=== PATIENT | female | born 2000 | race Hispanic/Latino ===

== ENCOUNTER 2020-10-12 14:38 | Emergency (ER) | payer BC ==
[2020-10-12] MEDS ORDERED: LIDOCAINE 1% MPF 5 ML VIAL ONE (18:17)
--- NOTE | 2020-10-12 18:33 | ER ---
Nurse's Notes [facility] Name: Blossom Canales Age: 19 yrs Sex: Female : 2000 Arrival Date: 10/12/2020 Time: 14:51 Bed 30 Private MD: Diagnosis: Abscess of vulva-Left labia Presentation: 10/12 15:27 Chief complaint: Patient states: Draining abscess in Left inner thigh x 3 days. Pt kg stated she has had one there before. Coronavirus screen: Client denies travel out of the [place] in the last 14 days. At this time, unable to obtain information related to travel outside the [place] At this time, the client does not indicate any symptoms associated with coronavirus-19. Ebola Screen: Patient negative for fever greater than or equal to 101.5 degrees Fahrenheit, and additional compatible Ebola Virus Disease symptoms Patient denies exposure to infectious person. Patient denies travel to an Ebola-affected area in the 21 days before illness onset. No symptoms or risks identified at this time. Initial Sepsis Screen: Does the patient meet any 2 criteria? No. Patient's initial sepsis screen is negative. Does the patient have a suspected source of infection? No. Patient's initial sepsis screen is negative. Risk Assessment: Do you want to hurt yourself or someone else? Patient reports no desire to harm self or others. Onset of symptoms was October 09, 2020. 15:27 Method Of Arrival: Wheelchair kg 15:27 Acuity: WARREN 4 kg Triage Assessment: 15:33 General: Appears in no apparent distress. Behavior is calm, cooperative, appropriate kg for age, quiet. Pain: Complains of pain in groin Pain currently is 5 out of 10 on a pain scale. at worst was 7 out of 10 on a pain scale. level that patient reports is acceptable is 3 out of 10 on a pain scale. 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 - Social history:: Smoking status: Patient denies any tobacco usage or history of. Patient uses alcohol, occasionally. - Family history:: not pertinent. - Hospitalizations: : No recent hospitalization is reported. Screenin:33 Abuse screen: Denies threats or abuse. Denies injuries from another. Nutritional kg screening: No deficits noted. Tuberculosis screening: No symptoms or risk factors identified. Fall Risk None identified. Assessment: 18:00 General: Appears in no apparent distress. uncomfortable, Behavior is cooperative, vg1 anxious. Pain: Complains of pain in groin Pain currently is 10 out of 10 on a pain scale. Pain began 2-3 days ago. Noted to be crying, grimacing, guarding, moaning. Neuro: Level of Consciousness is awake, alert, obeys commands, Oriented to person, place, time, situation. Cardiovascular: Patient's skin is warm and dry. Respiratory: Airway is patent Respiratory effort is even, unlabored. GI: No signs and/or symptoms were reported involving the gastrointestinal system. : Swelling noted on labia. EENT: No signs and/or symptoms were reported regarding the EENT system. Derm: Skin is red, left labia Skin temperature is hot. Musculoskeletal: Circulation, motion, and sensation intact. 18:23 Reassessment: received VO from Dr Anderson to administer zofran 4 mg PO x1 and Morphine 4 vg1 mg IM x1. Vital Signs: 15:27 BP 111 / 79; Pulse 77; Resp 20; Temp 98.3; Pulse Ox 99% on R/A; Weight 69.85 kg (R); kg Height 5 ft. 8 in. (172.72 cm); Pain 5/10; 15:27 Body Mass Index 23.42 (69.85 kg, 172.72 cm) kg ED Course: 14:51 Patient arrived in ED. ds1 15:30 Triage completed. kg 15:33 Patient has correct armband on for positive identification. kg 17:49 Christian Anderson MD is Attending Physician. rn 18:02 Kimberly Smith RN is Primary Nurse. ss 18:02 No provider procedures requiring assistance completed. Patient did not have IV access ss during this emergency room visit. 18:32 Maylin Tompkins MD is Referral Physician. rn 18:58 Patient placed. vg1 Administered Medications: 18:30 Drug: Ondansetron 4 mg Route: PO; vg1 18:58 Follow up: Response: No adverse reaction vg1 18:31 Drug: morphine 4 mg Route: IM; Site: left deltoid; vg1 18:58 Follow up: Response: No adverse reaction; Marked relief of symptoms vg1 Outcome: 18:33 Discharge ordered by . rn 18:58 Discharged to home ambulatory, with family. vg1 18:58 Condition: stable 18:58 Discharge instructions given to patient, Instructed on discharge instructions, follow up and referral plans. medication usage, Demonstrated understanding of instructions, follow-up care, medications, Prescriptions given X 2. 18:58 Patient left the ED. vg1 Signatures: Uyen Pablo ds1 Christian Anderson MD MD rn Smirch, Shelby, RN RN ss Garcia, Victoria, RN RN vg1 Wilda Sanabria RN RN kg
--- NOTE | 2020-10-12 18:33 | EDPHYS ---
Physician Documentation [facility] Name: Blossom Canales Age: 19 yrs Sex: Female : 2000 Arrival Date: 10/12/2020 Time: 14:51 Bed 30 Private MD: ED Physician Christian Anderson HPI: 10/12 18:17 This 19 yrs old Female presents to ER via Wheelchair with complaints of rn Abscess. 18:17 The patient presents with an abscess of the left labia. Description: The affected area rn is moderate sized, localized, draining, erythematous, swollen, tense. Onset: The symptoms/episode began/occurred 3 day(s) ago. Possible cause(s): unknown. Associated signs and symptoms: Pertinent positives: drainage, erythema, swelling, Pertinent negatives: fever. Modifying factors: the symptoms are alleviated by nothing, the symptoms are aggravated by movement, squeezing the lesion and expressing the contents, touching. Severity of symptoms: At their worst the symptoms were moderate, in the emergency department the symptoms are unchanged. The patient has not experienced similar symptoms in the past. The patient has not recently seen a physician. Reports left labial abscess that began atleast 3 days ago. Reports other abscesses before but in axilla. . 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 - Social history:: Smoking status: Patient denies any tobacco usage or history of. Patient uses alcohol, occasionally. - Family history:: not pertinent. - Hospitalizations: : No recent hospitalization is reported. ROS: 18:17 Constitutional: Negative for fever, chills, and weight loss, : + left labial swelling rn and pain Exam: 18:17 Constitutional: This is a well developed, well nourished patient who is awake, alert, rn and in no acute distress. Abdomen/GI: soft, non-tender Female : + moderate sized, approximate 7-8 cm diameter area of fluctuance and tenderness left lateral labia with drainage to lateral side of swelling. Vital Signs: 15:27 BP 111 / 79; Pulse 77; Resp 20; Temp 98.3; Pulse Ox 99% on R/A; Weight 69.85 kg (R); kg Height 5 ft. 8 in. (172.72 cm); Pain 5/10; 15:27 Body Mass Index 23.42 (69.85 kg, 172.72 cm) kg Procedures: 18:17 I \T\ D: Incision and drainage was performed for an abscess of the left labia Prepped rn with Betadine, Anesthetized with 5 ml's 1% Lidocaine. Incised with #11 blade. Drained large amount purulent fluid. serosanguinous fluid. Loculations removed. Abscess cavity explored. Packed with iodoform gauze, Dressing: sterile 4x4 gauze, non-Adherent dressing, the patient tolerated the procedure well. MDM: 17:49 Patient medically screened. rn 18:17 Differential diagnosis: abscess, cellulitis. Data reviewed: vital signs, nurses notes, rn and as a result, I will discharge patient. Counseling: I had a detailed discussion with the patient and/or guardian regarding: the historical points, exam findings, and any diagnostic results supporting the discharge/admit diagnosis, the need for outpatient follow up, to return to the emergency department if symptoms worsen or persist or if there are any questions or concerns that arise at home. 18:30 Special discussion: I discussed with the patient/guardian in detail that at this point rn there is no indication for admission to the hospital. It is understood, however, that if the symptoms persist or worsen the patient needs to return immediately for re-evaluation. Based on the history and exam findings, there is no indication for further emergent testing or inpatient evaluation. I discussed with the patient/guardian the need to see the OB Gyne specialist for further evaluation of the symptoms. ED course: Patient with large labial abscess status post incision and drainage. Cavity explored with cotton swab and irrigated, loculations removed. Still moderate amount of induration and swelling but fluctuance has subsided significantly. Wound packed. Will DC home with [facility] follow-up. Advised if cannot make appointment and to return here for wound reevaluation and repacking since patient does not have a private [facility]TH[facility]ED[facility] PODIATRIST doctor.. 10/12 18:16 Order name: Wound Care; Complete Time: 18: rn 10/12 18:16 Order name: Wound dressing; Complete Time: 18: rn 10/12 18:17 Order name: Incision \T\ Drainage Setup; Complete Time: : rn Administered Medications: 18:30 Drug: Ondansetron 4 mg Route: PO; vg1 18:58 Follow up: Response: No adverse reaction vg1 18:31 Drug: morphine 4 mg Route: IM; Site: left deltoid; vg1 18:58 Follow up: Response: No adverse reaction; Marked relief of symptoms vg1 Disposition Summary: 10/12/20 18:33 Discharge Ordered Location: Home rn Problem: new rn Symptoms: have improved rn Condition: Stable rn Diagnosis - Abscess of vulva - Left labia rn Followup: rn - With: Maylin Tompkins MD - When: 2 - 3 days - Reason: Wound Recheck, Further diagnostic work-up, Recheck today's complaints, Re-evaluation by your physician Discharge Instructions: - Discharge Summary Sheet rn - Skin Abscess rn - Incision and Drainage rn Forms: - Medication Reconciliation Form rn - Thank You Letter rn - 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
[2020-10-12] MEDS ORDERED: ONDANSETRON 4 MG (ODT) TAB ONE (18:55)
[2020-10-12] MEDS ORDERED: MORPHINE 4 MG/ML SYR ONE (18:55)
[2020-10-12 19:35] VITALS: BP 111/79; TEMP 98.3; O2SAT 99
--- OUTSIDE RECORDS SUMMARY | 2020-10-12 22:46 | XMS REPORT | Continuity of Care Document ---
:2000 Author Organization [facility] t Address [address] [place] [address] Care Team Providers Name Role Phone Skyla Perez MD Attending Clinician Doctor Unassigned, [place] Attending Clinician Unavailable Problems This patient has no known problems. Allergies, Adverse Reactions, Alerts This patient has no known allergies or adverse reactions. Medications Ordered Filled Start Stop Current Ordering Indication Dosage Frequency Signature Comments Components Source Medication Medication Date Date Medication? Clinician (SIG) Name Name Montelukast Montelukast Yes Rolando [address] [facility] Sodium Sodium [facility]es in [facility] Cetirizine Cetirizine Yes Rolando [address] [facility] HCl HCl Rodriges [facility] Sertraline Sertraline Yes Rolando TAKE [address] [facility] HCl HCl Rodriges TABLET BY [facility] DA[facility] FOR l 30 DAYS [facility] Zoloft Zoloft Yes Rolando [facility] Immunizations Ordered Filled Immunization Date Status Comments Sourc e Immunization Name Name Afluria single dose Afluria single dose 2018-12-[address] [facility] Meningoccal MCV4 Meningoccal MCV4 2018-09-[address] [facility] Procedures This patient has no known procedures. Encounters Start End Encounter Admission Attending Care Care Encounter Source Date/Time Date/Time Type Type Clinicians Facility Department ID 2020-10-05 2020-10-05 Outpatient [facility] [id number] [facility] 2020-07-03 2020-07-03 Out[facility] [id number] [facility] 2020-03-16 2020-03-16 Out[facility] [id number] [facility] 2020-03-13 2020-03-13 Outpatient [facility] [id number] [facility] 2019-12-04 2019-12-04 Outpatient [facility] [id number] [facility] 2019-09-09 2019-09-09 [facility] [id number] [facility] 12:28:00 12:28:00 [place] [employer] [facility] - [facility] l Medicine Outpati ent Clinics 2019-09-03 2019-09-03 [facility] [id number] [facility] 10:45:00 10:45:00 [place] [employer] [facility] - [facility] l Medicine Outpat[facility] ent Clinics 2019-03-20 2019-03-20 [facility] [id number] [facility] 14:15:00 14:15:00 [place] [employer] [facility] - [address] [facility] l Medicine Outpati ent Clinics 2018-12-18 2018-12-18 [facility] [id number] [facility] 13[facility]30:00 13:30:00 [place] [employer] [facility] - [facility] Family [facility] l Medicine Outpati ent Clinics 2018-11-26 2018-11-26 [facility] [id number] [facility] 11:03:00 11:03:00 [place] [employer] [facility] - [address] [facility] Family [facility] l Medicine Outpati ent Clinics 2018-11-23 2018-11-23 [facility] [id number] [facility] 08:15:00 08:15:00 [place] [employer] - [place] [facility] Medicine Medicine Outpati ent Clinics 2018-11-05 2018-11-05 Office BOUCHRA Perez [id number] 10:01:13 10:41:50 Visit Skyla SPECIALTY [id number] [id number] [place] [id number] 2018-11-05 2018-11-05 Orders Doctor SOWMYA [id number] 00:00:00 00:00:00 Only Unassigned, [place] [id number] [place] [id number] 2018-09-19 2018-09-19 [facility] [id number] [address] 09:30:00 09:30:00 [place] [employer] - [facility] Medicine Outpati ent Clinics 2018-08-30 2018-08-30 [facility] [id number] [address] 09:15:00 09:15:00 [place] [employer] - [place] [facility] Medicine Medicine Outpati ent Clinics 2018-08-14 2018-08-14 [facility] [id number] 10:44:00 10:44:00 [place] [employer] - [place] [facility] Medicine Medicine Outpati ent Clinics 2018-08-09 2018-08-09 [facility] [id number] 09:30:00 09:30:00 [place] [employer] - [place] [facility] Medicine Medicine Outpati ent Clinics 2018-04-13 2018-04-13 [facility] [id number] 09:00:00 09:00:00 [place] [employer] [facility] - [place] [facility] Medicine l Medicine Outpati ent Clinics 2017-08-10 2017-08-10 [facility] [id number] 10:30:00 10:30:00 [place] [employer] [facility] - [facility] Medicine Outpati ent Clinics 2017-05-11 2017-05-11 [facility] [id number] 11:00:00 11:00:00 t [employer] [facility] Medicine Medicine Outpati ent Clinics Results This patient has no known results.
== END 2020-10-12 18:58 | disposition home or self-care (01) ==
LOC: ER 14:38
PROC: 0U9MXZZ Drainage of Vulva, External Approach (ICD-10-PCS; principal; 2020-10-12)
DX: N76.4 Abscess of vulva (principal); F41.9 Anxiety disorder, unspecified
CPT/HCPCS: 96372; 99283